=== PATIENT | female | born 2005 | race Caucasian/White ===

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

== ENCOUNTER → 2024-06-01 | Outpatient (CLI) | payer OTHER, SELFPAY ==
[2024-06-01 16:14] LABS: Ferritin 31 ng/mL (8-252); Free T3 2.7 pg/mL (2.18-3.98); Iron 107 ug/dL (50-170); Iron Binding Capacity,Total 372 ug/dL (250-450); PERCENT IRON SATURATION 28.8 % (15.0-55.0); T4 Free Direct 1.02 ng/dL (0.76-1.46); Thyroid Stim Hormone (TSH) 0.723 uIU/mL (0.358-3.740)
[2024-06-04 12:08] LABS: ANTINUCLEAR ANTIBODIES DIRECT Negative (Negative)
[2024-06-07 18:07] LABS: Androstenedione 117 ng/dL (41-262)
== END | disposition home or self-care (01) ==
LOC: MTLAB 13:14
PROVIDERS: PCP Family Medicine; Referring Provider Family Medicine; Visit Provider Family Medicine
DX: R55 Syncope and collapse (principal); E61.1 Iron deficiency
CPT/HCPCS: 36415; 82157; 82627; 82728; 83540; 83550; 84403; 84439; 84443; 84481; 86038; 82626